=== PATIENT | female | born 1985 | race Caucasian/White ===

== ENCOUNTER 2020-03-15 18:00 | Emergency (ER) | payer OTHER ==
[~2020-03-15] VITALS: Ht 167.6 cm; Wt 136.1 kg
[2020-03-15] MEDS ORDERED: ULTRAM 50MG50 MG PO (18:22)
[2020-03-15] MEDS ORDERED: IBUPROFEN IB200 MG PO (18:22)
--- NOTE | 2020-03-15 18:22 | Emergency Department Note ---
History of Present Illnes History of Present Illness Chief Complaint: General Medicine Complaints History of Present Illness This is a 34 year old female. SHE C/O RT LEG FEELS SWOLLEN WITH PAIN FROM BELOW KNEE TO CALF. PT AMBULATORY STEADY GAIT. AAOX4. NAD. PT PLEASANT AND COOPERATIVE. PT DENIES SMOKING. NO LONG CAR/PLANE RIDES. NO HX DVTS. Historian: Patient Arrival Mode: Car Onset (how long ago): day(s) Radiation: Reports back, Reports distal Severity: moderate Onset quality: gradual Duration (how long): day(s) Timing of current episode: constant Progression: worsening Relieving factors: none Exacerbating factors: none Associated symptoms: Reports denies other symptoms Treatments prior to arrival: none Past Medical/Family History Physician Review I have reviewed the patient's past medical and family history. Any updates have been documented here. Past Medical History Recent Fever: No Clinical Suspicion of Infectio: No New/Unexplained Change in Ment: No Past Medical History: None Past Surgical History: Other Surgery: TUBAL LIGATION Social History Counseling Performed: No Alcohol Use: None Any Illegal Drug Use: No Physically hurt or threatened: No Other Any Pre-Existing Lines (PICC,: No Review of Systems Review of Systems Constitutional: Reports no symptoms EENTM: Reports no symptoms Cardiovascular: Reports no symptoms Respiratory: Reports no symptoms Gastrointestinal: Reports no symptoms Genitourinary: Reports no symptoms Musculoskeletal: Reports as per HPI Integumentary: Reports no symptoms Neurological: Reports no symptoms Psychological: Reports no symptoms Endocrine: Reports no symptoms Hematological/Lymphatic: Reports no symptoms Physical Exam Related Data Allergies: Coded Allergies: No Known Allergies (Unverified , 03/15/20) Triage Vital Signs Vital Signs Date Time Temp Pulse Resp B/P (MAP) Pulse Ox O2 Delivery O2 Flow Rate FiO2 03/15/20 18:03 97.9 70 16 143/90 99 Room Air Vital signs reviewed: Yes Physical Exam CONSTITUTIONAL Constitutional: Present well-developed, Present well-nourished HENT HENT: Present normocephalic, Present atraumatic, Present oropharynx clear/moist, Present nose normal HENT L/R: Present left ext ear normal, Present right ext ear normal EYES Eyes: Reports PERRL, Reports conjunctivae normal NECK Neck: Present ROM normal PULMONARY Pulmonary: Present effort normal, Present breath sounds normal CARDIOVASCULAR Cardiovascular: Present regular rhythm, Present heart sounds normal, Present capillary refill normal, Present normal rate GASTROINTESTINAL Abdominal: Present soft, Present nontender, Present bowel sounds normal GENITOURINARY Genitourinary: Present exam deferred SKIN Skin: Present warm, Present dry MUSCULOSKELETAL Musculoskeletal: Present ROM normal, Present tenderness (right leg tender, positive straight leg raise on the right 45 degree) NEUROLOGICAL Neurological: Present alert, Present oriented x 3, Present no gross motor or sensory deficits PSYCHOLOGICAL Psychological: Present mood/affect normal, Present judgement normal Results Imaging Imaging results reviewed: Yes Imaging Comments Doppler and Xray: no acute, has mild DJD of lower back Assessment & Plan Medical Decision Making MDM sciatica vs DVT Assessment & Plan Final Impression: (1) Sciatic mononeuropathy (2) Acute pain of lower extremity Depart Disposition: HOME, SELF-CARE Last Vital Signs Date Time Temp Pulse Resp B/P (MAP) Pulse Ox O2 Delivery O2 Flow Rate FiO2 03/15/20 18:03 97.9 70 16 143/90 99 Room Air Home Meds Active Scripts Tramadol Hcl* (ULTRAM 50MG*) 50 Mg Tab, 50 MG PO Q6H PRN for PAIN, #20 TAB 0 Refills Prov:AR CANAS MD 03/15/20 Ibuprofen (IBUPROFEN IB) 200 Mg Tablet, 3 TAB PO Q6H PRN for pain, #90 Prov:AR CANAS MD 03/15/20 Physician Attestation Provider Attestation [employer] HELPER score: no record found. stable to f/u AR CANAS MD Mar 15, 2020 18:22
[2020-03-15] MEDS ORDERED: ACETAMINOPHEN 325 MG TAB PO ONE (18:30)
[2020-03-15] MEDS ORDERED: IBUPROFEN 200 MG TAB PO ONE (18:30)
[2020-03-15] MEDS ORDERED: IBUPROFEN 600 MG TAB ONE (18:34)
[2020-03-15] MEDS ORDERED: ACETAMINOPHEN 325 MG TAB ONE (18:34)
--- NOTE | 2020-03-15 19:00 | Diagnostic Imaging Report ---
Lumbar spine complete CPT code: 82159 Indication: Right sciatic pain Technique: A.P. And lateral views of the lumbar spine obtained. Comparison: None. Findings: There are five non rib bearing vertebral bodies. Alignment is maintained on the AP and lateral views. The transverse processes are intact. The vertebral body heights are well maintained. There is no significant joint space narrowing or endplate sclerosis or osteophyte formation. Mild facet arthropathy of the lower lumbar spine. No abnormalities of the sacroiliac joints. The sacrum is normal. The spinous processes are normally aligned. There is no evidence of subluxation. The bowel gas pattern is unremarkable. IMPRESSION: Mild facet arthropathy of the lower lumbar spine. No compression fracture or listhesis. Signed by: Dr. Herbie Cruz MD on 03/15/2020 6:57 PM
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
--- NOTE | 2020-03-15 19:32 | Diagnostic Imaging Report ---
EXAM: Right Lower Extremity Venous Duplex Ultrasound INDICATION: ^right leg pain COMPARISON: None TECHNIQUE: Phelps scale, color Doppler and spectral waveform analysis of the unilateral lower extremity deep venous system was performed. FINDINGS: Common Femoral: Fully compressible with normal spontaneous waveforms. Proximal Greater Saphenous: Fully compressible. Femoral: Fully compressible with normal spontaneous waveforms. Normal response to augmentation. Proximal Deep Femoral: Normal spontaneous waveforms. Popliteal: Fully compressible with normal spontaneous waveforms. IMPRESSION: No evidence of deep venous thrombosis above the right calf. Signed by: Dr. Herbie Cruz MD on 03/15/2020 7:29 PM
== END 2020-03-15 19:46 | disposition home or self-care (01) ==
LOC: FSED 18:10
DX: M79.661 Pain in right lower leg (principal); M54.31 Sciatica, right side; M47.896 Other spondylosis, lumbar region
CPT/HCPCS: 72100; 93971; 99283